=== PATIENT | male | born 1980 | race Caucasian/White ===

== ENCOUNTER 2018-07-19 12:01 | Emergency (ER) | payer BC ==
[2018-07-19 12:06] VITALS: BP 160/94
--- NOTE | 2018-07-19 12:45 | EDPHY ---
H & P Stated Complaint: Right middle finger inj Time Seen by Provider: 07/19/18 12:29 HPI/ROS: Chief Complaint: Right finger injury HPI: 38-year-old male slipped on the ice while jogging, fell on his outstretched hand. He sustained injury to his right middle finger. He has been unable to bend his finger since the injury. No prior injuries. No other complaints at this time. ROS: 10 systems were reviewed and were negative except those elements noted in the HPI. PMH: Denies Social History: No smoking, no alcohol, no recreational drug use Family History: non-contributory Physical Exam: General: Awake, alert, no acute distress Right hand: Patient has a deformity consistent with posterior dislocation of his right 3rd finger PIP joint. He is unable to flex it. Sensations intact distally. Capillary refills less than 2 sec. Skin: No rash - Personal History Current Tetanus/Diphtheria Vaccine: Yes - Medical/Surgical History Hx Asthma: No Hx Chronic Respiratory Disease: No Hx Diabetes: No Hx Cardiac Disease: No Hx Renal Disease: No Hx Cirrhosis: No Hx Alcoholism: No Other PMH: Denies - Social History Smoking Status: Never smoked Constitutional: Initial Vital Signs Temperature (C) 36.6 C 07/19/18 12:03 Heart Rate 82 07/19/18 12:03 Respiratory Rate 18 07/19/18 12:03 Blood Pressure 160/94 H 07/19/18 12:03 O2 Sat (%) 98 07/19/18 12:03 O2 Delivery Mode Room Air Allergies/Adverse Reactions: No Known Allergies Allergy (Unverified 07/19/18 12:06) Home Medications: Medication Instructions Recorded NK [No Known Home Meds] 07/19/18 Medical Decision Making Procedures: Procedure: Dislocation reduction. The dislocation of the right middle finger PIP was reduced using counter traction and volar pressure technique without complications. Post reduction the patient's neurovascular exam is normal. Post reduction x-ray demonstrates reduction of the joint to the anatomic position. The procedure was performed by myself. ED Course/Re-evaluation: The patient with finger dislocation status post reduction by me. Patient was placed in aluminum foam finger splint. He has got good immobility with normal perfusion and is comfortable. Will discharge with follow up with Hand surgery as needed. Departure - Departure Disposition: Home, Routine, Self-Care Clinical Impression: Finger dislocation Condition: Good Instructions: Finger Dislocation (ED) Additional Instructions: Keep the splint in place until you follow up with the hand surgeon. Follow up with Hand surgery in 3-4 days for further evaluation. Return to the emergency depart for increasing pain, numbness, or any other concerns. Referrals: Keshav Alfonso MD [Medical Doctor] - As per Instructions
== END 2018-07-19 13:22 | disposition home or self-care (01) ==
PROC: 0RSWXZZ Reposition Right Finger Phalangeal Joint, External Approach (ICD-10-PCS; principal; 2018-07-19)
DX: S69.91XA Unspecified injury of right wrist, hand and finger(s), initial encounter (principal); W00.0XXA Fall on same level due to ice and snow, initial encounter; Y92.9 Unspecified place or not applicable; Y93.02 Activity, running; Y99.9 Unspecified external cause status
CPT/HCPCS: L3925